=== PATIENT | female | born 1960 | race Caucasian/White ===

== ENCOUNTER → 2019-10-04 | Day surgery (SDC) | payer OTHER ==
[~2019-10-04] MED LIST: CELE200C PO; IV RINGERS,LACTATED 1000ML 1,000 ML IV SCH; LIDOCAINE 2% PF 5 ML VIAL. ONE; PROPOFOL 40 ML IV ONE
[2019-10-04 08:00] VITALS: BP 146/84
--- NOTE | 2019-10-04 14:53 | CONS ---
DATE OF CONSULTATION: REFERRING PHYSICIAN: Dr. Jack Salmeron. REASON FOR CONSULTATION: Colorectal screening. HISTORY OF PRESENT ILLNESS: A 58-year-old female with past medical history significant for multiple sclerosis, status post hysterectomy and tonsillectomy as well as mitral regurgitation, seen for screening colon exam. Last exam was done revealing 10 years ago. Bowel habits are regular without diarrhea or constipation. There has been no melena or hematochezia. Weight and appetite are stable. She is otherwise without additional complaints with a negative family history. PAST MEDICAL HISTORY: Significant for multiple sclerosis. PAST SURGICAL HISTORY: Status post hysterectomy and tonsillectomy. MEDICATIONS: Celebrex 200 mg b.i.d. SOCIAL HISTORY: Nondrinker, nonsmoker. FAMILY HISTORY: Noncontributory. REVIEW OF SYSTEMS: Per records. PHYSICAL EXAMINATION: GENERAL: Reveals a well-nourished, well-developed female who is alert, cooperative, in no acute distress. LUNGS: Clear. CARDIOVASCULAR: Reveals an S1, S2 with a 2/6 systolic ejection murmur heard best at the lower left sternal border. ABDOMEN: Reveals a soft abdomen, normal bowel sounds, without appreciable hepatosplenomegaly. IMPRESSION: Colorectal screening is warranted at this time. Risks and benefits of procedure including risk of hemorrhage and perforation during the operation have been discussed. The patient is willing to proceed at this time. NATHALIE SAHU MD DR: SHEILA/christopher JOB#: [id number] / [id number]
== END ==
LOC: ENDOS 05:46
PROVIDERS: ATTEND Internal Medicine Gastroenterology
DX: Z12.11 Encounter for screening for malignant neoplasm of colon (principal); K57.30 Diverticulosis of large intestine without perforation or abscess without bleeding; K64.0 First degree hemorrhoids; Z90.710 Acquired absence of both cervix and uterus; Z98.890 Other specified postprocedural states
CPT/HCPCS: 45378; J2001; J2704